=== PATIENT | female | born 1970 | race Caucasian/White ===

== ENCOUNTER → 2019-08-24 12:30 | Outpatient (BNVA) | payer MEDICAID, SELFPAY | PROVIDERS: Visit Provider Nurse Practitioner Women's Health | DX: Z12.4 Encounter for screening for malignant neoplasm of cervix (principal); R10.2 Pelvic and perineal pain; R32 Unspecified urinary incontinence | CPT/HCPCS: 88175 ==

== ENCOUNTER 2022-08-19 13:03 | Emergency (ER) | payer MEDICARE, MEDICAID, SELFPAY ==
[2022-08-19 13:15] VITALS: BP 173/97; PULSE 97; RESP 16; TEMP 36.6; O2SAT 96
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
--- NOTE | 2022-08-20 10:52 | DCPLANNER ---
Addendum entered by Rocio Gresham 12/02/22 11:14: Patient had a follow up appointment at neurology- patient did attend appointment. Addendum entered by Rocio Gresham 08/22/22 14:25: Patient has a follow up appointment scheduled for Friday, November 25, 2022 at 12:[address] Daniels at neurology. Clinic will call patient with appointment information. Original Note: marketing and public relations manager had message to schedule a follow up appointment for patient with neurology. marketing and public relations manager sent patients information to the front office staff at neurology. Patients information will be printed and reviewed. Clinic will call patient with appointment information.
== END 2022-08-19 14:31 | disposition home or self-care (01) ==
PROVIDERS: Emergency Provider Emergency Medicine; PCP Nurse Practitioner Family
DX: G44.309 Post-traumatic headache, unspecified, not intractable (principal); E11.9 Type 2 diabetes mellitus without complications; I10 Essential (primary) hypertension; F17.210 Nicotine dependence, cigarettes, uncomplicated; Z79.84 Long term (current) use of oral hypoglycemic drugs; Z79.4 Long term (current) use of insulin
CPT/HCPCS: 99283

== ENCOUNTER → 2022-11-25 12:10 | Outpatient (BNVA) | payer MEDICARE, MEDICAID, SELFPAY | PROVIDERS: PCP Nurse Practitioner Family; Referring Provider Emergency Medicine; Visit Provider Specialist | DX: G43.711 Chronic migraine without aura, intractable, with status migrainosus (principal); M79.7 Fibromyalgia; E11.42 Type 2 diabetes mellitus with diabetic polyneuropathy; Z79.4 Long term (current) use of insulin | CPT/HCPCS: 99204 ==

== ENCOUNTER 2022-12-12 07:28 | Outpatient (CLI) | payer MEDICARE, MEDICAID, SELFPAY ==
--- NOTE | 2022-12-12 08:00 | MR_ITS ---
WS: [id number] MRI BRAIN WITHOUT CONTRAST HISTORY: G43.711 - Chronic migraine without aura, intractable. COMPARISON: None available. TECHNIQUE: Diffusion imaging, multiplanar T1, T2 and FLAIR imaging obtained. Diffusion imaging is normal. No acute infarct or hemorrhage. Numerous T2 and FLAIR signal hyperintens ities are noted. These are predominantly in the subcortical white matter involving the frontal, tempo ral and parietal lobes. No signal abnormality in the cerebellum or guillermo. The extent of the T2 and FLA IR signal abnormalities more than expected for a patient of this age. Small lacunar infarct RIGHT bas al ganglia. There is mild volume loss which is more than expected for age. There is increased CSF surrounding the frontal lobes bilaterally. Ventricles and extra-axial spaces are normal. No inferior displacement of cerebellar tonsils. The sella turcica and pituitary gland are unremarkabl e. Dural venous sinuses and [place] of [place] demonstrate no abnormality on this unenhanced studies. Paranasal sinuses: Mucoperiosteal thickening and variable signal intensity in the RIGHT maxillary sin us. Mastoid air cells: Normal. Calvarium and scalp: Intact. MR/MR head wo con* [id number] IMPRESSION: 1. No acute infarct or hemorrhage. 2. Moderate small vessel ischemic type changes in the subcortical white matter . More than expected for a patient of this age. These findings can be seen with small vessel ischemic disease, migraines, hypertension, diabetes and smoking h istory. 3. RIGHT basal ganglia lacunar infarct. 4. Mild cerebral atrophy, more than expected for patient's age.
== END 2022-12-12 07:29 | disposition home or self-care (01) ==
LOC: RAD 07:31
PROVIDERS: PCP Nurse Practitioner Family; Visit Provider Specialist
DX: G43.711 Chronic migraine without aura, intractable, with status migrainosus (principal)
CPT/HCPCS: 70551

== ENCOUNTER → 2023-01-14 11:23 | Outpatient (BNVA) | payer MEDICARE, MEDICAID, SELFPAY | PROVIDERS: PCP Nurse Practitioner Family; Visit Provider Specialist | DX: G43.711 Chronic migraine without aura, intractable, with status migrainosus (principal); G37.9 Demyelinating disease of central nervous system, unspecified; G44.321 Chronic post-traumatic headache, intractable; F17.210 Nicotine dependence, cigarettes, uncomplicated | CPT/HCPCS: 96372; 99214; J1885; J2405 ==

== ENCOUNTER 2023-06-10 09:01 | Outpatient (CLI) | payer MEDICARE, MEDICAID, SELFPAY ==
--- NOTE | 2023-06-10 09:00 | MM_ITS ---
WS: [id number] Bilateral screening 3D tomosynthesis digital mammogram, 06/10/2023 Clinical Data: SCREENING Comparison: 02/20/2010 Findings: The breast parenchymal pattern shows fibroglandular tissue. No spiculated masses or clustered calcifi cations are seen. There are no secondary signs of carcinoma. Impression: 1. Negative bilateral mammogram unchanged. 2. Recommend annual screening mammograms. MM/[place] [id number] BIRADS: 1-Negative FOLLOW UP: 1 Year Follow-up The CAD checkering machine operator was used.
== END 2023-06-10 09:02 | disposition home or self-care (01) ==
LOC: MOBLMAM 09:08
PROVIDERS: PCP Nurse Practitioner Family; Visit Provider Nurse Practitioner Family
DX: Z12.31 Encounter for screening mammogram for malignant neoplasm of breast (principal)
CPT/HCPCS: 77063; 77067

== ENCOUNTER 2023-07-18 13:32 | Emergency (ER) | payer MEDICARE, MEDICAID, SELFPAY ==
[2023-07-18 13:36] VITALS: BP 205/124; PULSE 98; RESP 15; TEMP 36.6; O2SAT 97
--- NOTE | 2023-07-18 13:59 | W.ED.NAVMDI ---
HPI - Nausea/Vomiting/Diarrhea General: Chief complaint: Nausea/Vomiting/Diarrhea Stated complaint: N/V Time Seen by Provider: 07/18/23 13:36 Source: patient Mode of arrival: ambulatory Limitations: no limitations History of Present Illness: 52-year-old female states over the last 2 days she has been having nausea vomiting some abdominal cramping. States she not been able to tolerate any of her meds this caused her to have high blood sugar along with hypertension she denies any fevers denies any worsening proving factors. Associated nausea: Yes Associated symtoms: Reports nausea; Denies chest pain or headache(s) Review of Systems Const: Denies: fever(s), chills, body aches or change in appetite ENMT: Denies: throat pain or dental pain Card: Denies: chest pain Resp: Denies: dyspnea GI: Reports: nausea and vomiting; Denies: abdominal pain or diarrhea Musc: Denies: neck pain or back pain Skin/Breast: Denies: rash Neuro: Denies: headache(s) PFSH ED PFSH: Medical History Peripheral neuropathy long term (current) use of opiate analgesic DDD (degenerative disc disease) Chronic pain Fibromyalgia syndrome Diabetes mellitus HTN (hypertension) Surgical History S/P shoulder surgery (09/18/17) S/P cholecystectomy (~1995) Family History Grandmother Heart disease Maternal grandmother Social History Smoking and tobacco/nicotine status: current every day tobacco/nicotine user cigarettes Packs smoked per day: 1 Alcohol intake: current Substance/Drug Use: never Physical Exam Const: COMMON NORMALS: no acute distress, patient oriented x3 and healthy appearing HENMT: COMMON NORMALS: normocephalic and atraumatic HEAD & SCALP: normocephalic and atraumatic Eye: COMMON NORMALS: Equal, round and reactive pupils present and EOMs intact bilaterally PUPIL: Yes Equal, round and reactive pupils present Neck/C-Spine: COMMON NORMALS: full ROM and supple Chest: COMMONS NORMALS: normal inspection of the chest and normal palpation of entire chest wall Resp: COMMON NORMALS: normal respiratory effort, No retractions, No use of accessory muscles and clear to auscultation bilaterally AUSCULTATION: clear to auscultation bilaterally Cardio: COMMON NORMALS: regular rate, regular rhythm and No murmurs present (Cardio) RATE: regular rate RHYTHM: regular rhythm GI: COMMON NORMALS: Normal to inspection, nondistended, normoactive bowel sounds present, Soft to palpation, non-tender and no masses PALPATION: Yes Soft to palpation Extremity: COMMON NORMALS: normal to inspection and full ROM Neuro: COMMON NORMALS: patient oriented x3, moves all extremities and no focal motor deficits Psych: COMMON NORMALS: mental status grossly normal, Normal thought process present and cooperative THOUGHT PROCESS: Normal thought process present Skin: COMMON NORMALS: no rashes or lesions noted and no wounds GENERAL SKIN EXAM: no rashes or lesions noted Course Vital Signs: Vital signs: Vital Signs Temperature 97.8 F 07/18/23 13:36 Pulse Rate 76 07/18/23 15:17 Respiratory Rate 14 07/18/23 15:17 Blood Pressure 137/83 07/18/23 15:17 Pulse Oximetry 99 07/18/23 15:17 Oxygen Delivery Me thod Room Air 07/18/23 15:17 MDM - Nausea/Vomiting/Diarrhea Medical Decision Making Patient presents with nausea vomiting likely viral in origin she feels much improved after fluids and Zofran blood work here is all normal she is stable for discharge we will prescribe her Zofran for home she is follow-up with PCP and return if worsening. Lab Data I reviewed the patient's lab results. 07/18/23 14:48 07/18/23 14:48 Laboratory Results WBC 7.98 10^3/uL (3.29-11.43) 07/18/23 14:48 RBC 5.42 10^6/uL (3.85-5.65) 07/18/23 14:48 Hgb 13.40 g/dL (11.27-16.99) 07/18/23 14:48 Hct 41.1 % (36-47) 07/18/23 14:48 MCV 75.8 fl (85-98) L 07/18/23 14:48 MCH 24.7 pg (27-33) L 07/18/23 14:48 MCHC 32.6 g/dL (30-55) 07/18/23 14:48 RDW 13.7 % (12.1-15.1) 07/18/23 14:48 Plt Count 501 10^3/cmm (157-399) H 07/18/23 14:48 MPV 9.1 fL (7.4-10.4) 07/18/23 14:48 Neut % (Auto) 76.5 % 07/18/23 14:48 Lymph % (Auto) 17.5 % 07/18/23 14:48 Mayes % (Auto) 5.4 % 07/18/23 14:48 Eos % (Auto) 0.0 % 07/18/23 14:48 Baso % (Auto) 0.1 % 07/18/23 14:48 Neut # (Auto) 6.10 10^3/uL (1.8-7.7) 07/18/23 14:48 Lymph # (Auto) 1.4 10^3/uL (0.8-4.8) 07/18/23 14:48 Mayes # (Auto) 0.4 10^3/uL (0.2-0.9) 07/18/23 14:48 Eos # (Auto) 0.0 10^3/uL (0.0-0.8) 07/18/23 14:48 Baso # (Auto) 0.0 10^3/uL (0.0-0.1) 07/18/23 14:48 Nucleated RBC % (auto) 0 % 07/18/23 14:48 Nucleated RBCs # 0.0 /100WBC 07/18/23 14:48 Sodium 133 mmol/L (136-145) L 07/18/23 14:48 Potassium 3.7 mmol/L (3.5-5.1) 07/18/23 14:48 Chloride 96 mmol/L (98-107) L 07/18/23 14:48 Carbon Dioxide 23 mmol/L (22-29) 07/18/23 14:48 Anion Gap 17.7 (5-19) 07/18/23 14:48 BUN 18 mg/dL (6-20) 07/18/23 14:48 Creatinine 0.7 mg/dL (0.5-0.9) 07/18/23 14:48 GFR Calculation 87.5 mL/min (90-130) L 07/18/23 14:48 Glucose 315 mg/dL (65-115) H 07/18/23 14:48 POC Glucose 307 mg/dL (70-110) H 07/18/23 13:43 Calculated Osmolality 290 mOsm/kg (285-295) 07/18/23 14:48 Calcium 10.7 mg/dL (8.5-10.5) H 07/18/23 14:48 Total Bilirubin 0.3 mg/dL (0.15-1.2) 07/18/23 14:48 AST 12 U/L (0-32) 07/18/23 14:48 ALT 18 U/L (0-33) 07/18/23 14:48 Alkaline Phosphatase 205 U/L (35-105) H 07/18/23 14:48 Total Protein 8.2 g/dL (6.6-8.7) 07/18/23 14:48 Albumin 3.9 g/dL (3.5-5.2) 07/18/23 14:48 Globulin 4.3 g/dL (1.3-4.6) 07/18/23 14:48 Lipase 14 U/L (13-60) 07/18/23 14:48 No radiology studies performed this visit Discharge Plan Discharge Patient Disposition: Home Clinical Impression: Vomiting Qualifiers: Vomiting type: unspecified Nausea presence: with nausea Qualified Code(s): R11.2 - Nausea with vomiting, unspecified Condition: Stable Prescriptions: New ondansetron 4 mg tablet,disintegrating 4 mg PO Q6H PRN (Reason: nausea and vomiting) Qty: 14 0RF No Action cetirizine 10 mg tablet 10 mg PO DAILY insulin lispro [Humalog U-100 Insulin] 100 unit/mL solution 0.1 unit SUBCUT DAILY albuterol sulfate [ProAir HFA] 90 mcg/actuation HFA aerosol inhaler 2 puff INHALATION Q6H PRN (Reason: Shortness Of Breath) lisinopril 20 mg tablet 20 mg PO DAILY magnesium oxide 400 mg magnesium capsule 400 mg PO DAILY celecoxib 100 mg capsule 100 mg PO BID Emgality Pen 120 mg/mL pen injector 240 mg SUBCUT ONCE Qty: 2 0RF Rx Instructions: Loading dose the first month, then 120mg/mL subcutaneously monthly carvedilol 25 mg tablet 25 mg PO BID tizanidine 4 mg tablet 4 mg PO TID PRN (Reason: Spasms) glipizide 10 mg tablet 10 mg PO BID rifampin 300 mg capsule 600 mg PO DAILY amlodipine 10 mg tablet 10 mg PO DAILY pantoprazole 40 mg tablet,delayed release (DR/EC) 40 mg PO DAILY levothyroxine 150 mcg tablet 150 mcg PO QAM flecainide 100 mg tablet 100 mg PO BID rosuvastatin 40 mg tablet 40 mg PO DAILY duloxetine 60 mg capsule,delayed release(DR/EC) 60 mg PO DAILY icosapent ethyl 1 gram capsule 2 g PO BID Tresiba FlexTouch U-200 200 unit/mL (3 mL) insulin pen 75 unit SUBCUT DAILY Trulicity 0.75 mg/0.5 mL pen injector 4.5 mg SUBCUT Q7D venlafaxine 75 mg capsule,extended release 24hr 150 mg PO DAILY Discharge Orders: Discharge ED (Routine); Ordered 07/18/23 Ordered By: José Nichols Referrals: Rosa Chahal, PROFESSIONAL SERVICES SPECIALIST [Primary Care Provider] - Discharge Diet: Advance as tolerated Discharge Activity: Resume usual activity Patient Instructions: Acute Nausea and Vomiting (ED) Coding Level of Care Code ED Service Advocate Contact for Rico Sesay
[2023-07-18 14:00] VITALS: BP 198/104; PULSE 91; RESP 13; O2SAT 97
[2023-07-18 14:39] VITALS: BP 155/100; PULSE 93; RESP 14; O2SAT 98
[2023-07-18] MEDS: sodium chloride 0.9% 1,000 ML 999 ML IV (14:46)
[2023-07-18] MEDS: ondansetron 2 mg/ML SDV 2 mL 4 MG IVP (14:46)
[2023-07-18 14:49] LABS: Glucose Point of Care 307 mg/dL (70-110)
[2023-07-18 14:54] VITALS: RESP 16; O2SAT 100
[2023-07-18] MEDS: HYDROmorphone 1 mg/mL INJ 1 mL IVP (14:54)
[2023-07-18 14:58] LABS: Basophils % 0.1 %; Hematocrit 41.1 % (36-47); Lymphocytes # 1.4 10^3/uL (0.8-4.8); Lymphocytes % 17.5 %; Mean Corpuscular HGB Conc 32.6 g/dL (30-55); Mean Corpuscular Hemoglobin 24.7 pg (27-33); Mean Corpuscular Volume 75.8 fl (85-98); Mean Platelet Volume 9.1 fL (7.4-10.4); Monocytes # 0.4 10^3/uL (0.2-0.9); Monocytes % 5.4 %; Neutrophils % 76.5 %; Nucleated Red Blood Cells % 0 %; Platelet Count 501 10^3/cmm (157-399); Red Blood Count 5.42 10^6/uL (3.85-5.65); Red Cell Distribution Width 13.7 % (12.1-15.1); White Blood Count 7.98 10^3/uL (3.29-11.43)
[2023-07-18 15:17] VITALS: BP 137/83; PULSE 76; RESP 14; O2SAT 99
[2023-07-18 15:20] LABS: Alanine Aminotransferase 18 U/L (0-33); Albumin Level 3.9 g/dL (3.5-5.2); Alkaline Phosphatase 205 U/L (35-105); Anion Gap 17.7 (5-19); Aspartate Amino Transferase 12 U/L (0-32); Blood Urea Nitrogen 18 mg/dL (6-20); Calcium 10.7 mg/dL (8.5-10.5); Carbon Dioxide 23 mmol/L (22-29); Chloride 96 mmol/L (98-107); Creatinine Clr Calc Pharmacy 96.6632; Globulin 4.3 g/dL (1.3-4.6); Glomerular Filtration Rate 87.5 mL/min (90-130); Glucose 315 mg/dL (65-115); Lipase 14 U/L (13-60); Osmolality Calculated 290 mOsm/kg (285-295); Potassium 3.7 mmol/L (3.5-5.1); Sodium 133 mmol/L (136-145); Total Bilirubin 0.3 mg/dL (0.15-1.2); Total Protein 8.2 g/dL (6.6-8.7)
[2023-07-18 15:47] VITALS: BP 143/83; PULSE 84; RESP 14; O2SAT 96
[2023-07-18 16:03] LABS: Add Urine Culture? No; Add Urine Microscopic? YES; Bacteria Urine TRACE /hpf; Bilirubin Urine Neg (Negative); Blood Urine Neg (Negative); Glucose Urine UA 4+ (Normal); Ketones Urine 1+ (Negative); Leukocyte Esterase Urine Negative (Negative); Mucus Urine TRACE /hpf; Nitrate Urine Negative (Negative); Protein Urine Trace (Negative); RBC Urine 0-4 /hpf (0-2); Squamous Epithelial Cell Urine 0-4 /hpf (0-5); Urine Appearance Clear (CLEAR); Urine Color Yellow (Yellow); Urobilinogen Urine Norm (Negative); WBC Urine 0-4 /hpf (0-5); pH Urine 5 (5-7)
== END 2023-07-18 15:49 | disposition home or self-care (01) ==
PROVIDERS: Emergency Provider Emergency Medicine; PCP Nurse Practitioner Family
DX: R11.2 Nausea with vomiting, unspecified (principal); Z79.85 Long-term (current) use of injectable non-insulin antidiabetic drugs; Z79.4 Long term (current) use of insulin; Z79.84 Long term (current) use of oral hypoglycemic drugs; Z72.0 Tobacco use; E11.42 Type 2 diabetes mellitus with diabetic polyneuropathy; I10 Essential (primary) hypertension
CPT/HCPCS: 36415; 36416; 80053; 81001; 82962; 83690; 85025; 96361; 96374; 96375; 99284; J1170; J2405; J7030

== ENCOUNTER → 2023-08-05 10:44 | Outpatient (BNVA) | payer MEDICARE, MEDICAID, SELFPAY | PROVIDERS: PCP Nurse Practitioner Family; Visit Provider Specialist | DX: G43.711 Chronic migraine without aura, intractable, with status migrainosus (principal); G37.9 Demyelinating disease of central nervous system, unspecified; E11.42 Type 2 diabetes mellitus with diabetic polyneuropathy; Z79.4 Long term (current) use of insulin | CPT/HCPCS: 99213 ==

== ENCOUNTER → 2023-08-28 10:48 | Outpatient (BNVA) | payer MEDICARE, MEDICAID, SELFPAY | PROVIDERS: PCP Nurse Practitioner Family; Visit Provider Specialist | DX: G43.711 Chronic migraine without aura, intractable, with status migrainosus (principal) | CPT/HCPCS: 64615 ==

== ENCOUNTER → 2023-11-27 11:26 | Outpatient (BNVA) | payer MEDICARE, MEDICAID, SELFPAY | PROVIDERS: PCP Nurse Practitioner Family; Visit Provider Specialist | DX: G43.711 Chronic migraine without aura, intractable, with status migrainosus (principal); G37.9 Demyelinating disease of central nervous system, unspecified; G62.9 Polyneuropathy, unspecified | CPT/HCPCS: 64615 ==

== ENCOUNTER → 2024-03-11 09:37 | Outpatient (BNVA) | payer MEDICARE, MEDICAID, SELFPAY | PROVIDERS: PCP Nurse Practitioner Family; Visit Provider Specialist | DX: G43.711 Chronic migraine without aura, intractable, with status migrainosus (principal); G37.9 Demyelinating disease of central nervous system, unspecified; G62.9 Polyneuropathy, unspecified | CPT/HCPCS: 64615 ==

== ENCOUNTER → 2024-06-18 10:00 | Outpatient (BNVA) | payer MEDICARE, MEDICAID, SELFPAY | PROVIDERS: PCP Nurse Practitioner Family; Visit Provider Specialist | DX: G43.711 Chronic migraine without aura, intractable, with status migrainosus (principal); G37.9 Demyelinating disease of central nervous system, unspecified; G62.9 Polyneuropathy, unspecified | CPT/HCPCS: 64615 ==

== ENCOUNTER 2024-08-03 08:33 | Outpatient (CLI) | payer MEDICARE, MEDICAID, SELFPAY ==
--- NOTE | 2024-08-03 08:35 | CT_ITS ---
WS: [id number] LDCT LUNG CANCER SCREENING TECHNIQUE: Noncontrast CT of the chest with coronal and sagittal reformatted images. CLINICAL INFORMATION: NICOTINE DEPENDENCE, CIGARETTES, UNCOMPLICATED COMPARISON: None. DLP: 67.80 mGy.cm DIvol: Mean CTDIvol: 1.60 (mGy) All CT scans at [facility] use at least one of these dose optimization techniques: automat ed exposure control; mA and/or kV adjustment per patient size (includes targeted exams where dose is matched to clinical indication); or iterative reconstruction. FINDINGS: Lungs are well aerated. No acute pulmonary infiltrates. No suspicious pulmonary parenchymal abnormalities Cholecystectomy clips. Normal GE junction. Adrenal glands are normal. Aortic calcification. No medias tinal or hilar lymphadenopathy. Slightly prominent axillary lymph nodes with persistent fatty kody nonspecific but likely reactive. CT/CT lung screening [id number] IMPRESSION: LUNG-RADS: 1-Negative FOLLOW UP: 12 Month: Continue annual screening with LDCT
== END 2024-08-03 08:34 | disposition home or self-care (01) ==
LOC: RAD 08:34
PROVIDERS: PCP Nurse Practitioner Family; Visit Provider Nurse Practitioner Family
DX: Z12.2 Encounter for screening for malignant neoplasm of respiratory organs (principal); F17.210 Nicotine dependence, cigarettes, uncomplicated; I70.0 Atherosclerosis of aorta; Z90.49 Acquired absence of other specified parts of digestive tract
CPT/HCPCS: 71271

== ENCOUNTER 2024-08-11 11:04 | Outpatient (CLI) | payer MEDICARE, MEDICAID, SELFPAY ==
--- NOTE | 2024-08-11 11:00 | MM_ITS ---
WS: [id number] BILATERAL SCREENING DIGITAL TOMOSYNTHESIS MAMMOGRAM WITH CAD HISTORY: SCREENING COMPARISON: 06/10/2023 Bilateral CC and MLO views with tomosynthesis and synthetic mammography submitted. Computer aided detection analyzed. Breast composition: There are scattered areas of fibroglandular density. No suspicious masses, microcalcifications or architectural distortion. Benign lucent calcification in the anterior LEFT breast. MM/MM scr BI tomosynthesis [id number] IMPRESSION: BI-RADS: 2 - Benign. FOLLOW UP: 1 Year Follow-up
== END 2024-08-11 11:05 | disposition home or self-care (01) ==
PROVIDERS: PCP Nurse Practitioner Family; Visit Provider Nurse Practitioner Family
DX: Z12.31 Encounter for screening mammogram for malignant neoplasm of breast (principal); R92.323 Mammographic fibroglandular density, bilateral breasts; R92.1 Mammographic calcification found on diagnostic imaging of breast
CPT/HCPCS: 77063; 77067

== ENCOUNTER → 2024-09-17 10:08 | Outpatient (BNVA) | payer MEDICARE, MEDICAID, SELFPAY | PROVIDERS: PCP Nurse Practitioner Family; Visit Provider Specialist | DX: G43.711 Chronic migraine without aura, intractable, with status migrainosus (principal) | CPT/HCPCS: 64615; J9999 ==

== ENCOUNTER → 2024-12-27 12:22 | Outpatient (BNVA) | payer MEDICARE, MEDICAID, SELFPAY | PROVIDERS: PCP Nurse Practitioner Family; Visit Provider Specialist | DX: G43.711 Chronic migraine without aura, intractable, with status migrainosus (principal) | CPT/HCPCS: 64615; J9999 ==

== ENCOUNTER → 2025-04-14 11:39 | Outpatient (BNVA) | payer MEDICARE, MEDICAID, SELFPAY | PROVIDERS: PCP Nurse Practitioner Family; Visit Provider Specialist | DX: G43.711 Chronic migraine without aura, intractable, with status migrainosus (principal); G37.9 Demyelinating disease of central nervous system, unspecified; G62.9 Polyneuropathy, unspecified | CPT/HCPCS: 64615; J9999 ==